=== PATIENT | female | born 1955 | race Caucasian/White ===

== ENCOUNTER 2017-12-28 15:26 | Emergency (ER) | payer OTHER ==
[~2017-12-28] VITALS: Ht 167.6 cm; Wt 103.5 kg
[2017-12-28] MEDS ORDERED: FLUO20CA19 PO (15:53)
[2017-12-28] MEDS ORDERED: OMEP20TA62 PO (15:53)
[2017-12-28] MEDS ORDERED: FLUT9.9S NAS (15:53)
[2017-12-28] MEDS ORDERED: AMLO10TA2 PO (15:53)
[2017-12-28] MEDS ORDERED: [UNRECOGNIZED DRUG - OTHER] PO (15:53)
[2017-12-28 16:00] LABS: BASOPHILS # (AUTO) 0.02 x10^3/uL (0-0.1); BASOPHILS % (AUTO) 0 % (0-1); EOSINOPHILS # (AUTO) 0.07 x10^3/uL (0-0.4); EOSINOPHILS % (AUTO) 1 % (1-7); LYMPHOCYTES # (AUTO) 1.41 x10^3/uL (1-3.4); LYMPHOCYTES % (AUTO) 17 % (22-44); MD NO; MEAN CORPUSCULAR HEMOGLOBIN 31.6 pg (27.0-34.8); MEAN CORPUSCULAR HGB CONC 33.5 g/dL (32.4-35.8); MEAN CORPUSCULAR VOLUME 94.1 fL (80-100); MEAN PLATELET VOLUME 10.6 fL (7.4-10.4); MONOCYTES # (AUTO) 0.38 x10^3/uL (0.2-0.8); MONOCYTES % (AUTO) 5 % (2-9); NEUTROPHILS # (AUTO) 6.23 x10^3/uL (1.8-6.8); NEUTROPHILS % (AUTO) 77 % (42-75); PLATELET COUNT 186 x10^3/uL (130-400); RED BLOOD COUNT 5.45 x10^6/uL (3.82-5.3); RED CELL DISTRIBUTION WIDTH 12.7 % (9.6-15.2)
[2017-12-28 16:06] LABS: ALANINE AMINOTRANSFERASE 25 U/L (12-78); ALBUMIN 3.6 g/dL (3.4-5.0); ANION GAP 8 mmol/L (5-15); CHLORIDE 106 mmol/L (98-107); CREATININE 0.81 mg/dL (0.55-1.02)
[2017-12-28] MEDS ORDERED: SODIUM CHLORIDE 0.9% 1,000 ML IV ONE (16:06)
[2017-12-28 16:09] LABS: ALKALINE PHOSPHATASE 103 U/L (45-117); BILIRUBIN,TOTAL 0.9 mg/dL (0.2-1.0); TOTAL PROTEIN 7.8 g/dL (6.4-8.2)
[2017-12-28] MEDS ORDERED: METOCLOPRAMIDE 5 MG/ML, 2ML ONE (16:19)
[2017-12-28] MEDS ORDERED: METOCLOPRAMIDE 5 MG/ML, 2ML IVPush ONE (16:30)
[2017-12-28] MEDS ORDERED: SODIUM CHLORIDE FLUSH 10ML SYR IVF ONE (16:30)
[2017-12-28] MEDS ORDERED: SODIUM CHLORIDE 0.9% 1,000ML IVBOLUS ONE (16:30)
[2017-12-28 16:47] LABS: MICROSCOPIC INDICATED
[2017-12-28 16:56] LABS: CULTURE INDICATED? YES
[2017-12-28 17:12] VITALS: BP 144/87
== END 2017-12-28 17:38 | disposition home or self-care (01) ==
LOC: ED 17:32
DX: R19.7 Diarrhea, unspecified (principal); E86.0 Dehydration; F90.9 Attention-deficit hyperactivity disorder, unspecified type; Z90.49 Acquired absence of other specified parts of digestive tract; Z87.891 Personal history of nicotine dependence; I10 Essential (primary) hypertension
CPT/HCPCS: 36415; 74021; 80053; 81001; 83690; 85025; 87086; 96361; 96374; 99285; J2765; J7030